=== PATIENT | male | born 1980 | race Caucasian/White ===

== ENCOUNTER 2024-02-11 13:01 | Inpatient (IN) | payer BC, OTHER ==
[~2024-02-11 13:01] MED LIST: Iopamidol-370 76% 500 ML MDV (1 ML CHARGE) ONE
[2024-02-11] MEDS ORDERED: Acetaminophen 500 MG TAB ONE (14:41)
[2024-02-11 15:19] LABS: #Basophils 0.04 10x3/uL (0.0-0.2); %Basophils 0.4 % (0.0-1.0); %Eosinophils 1.9 % (0.0-10.0); %Lymphocytes 12.7 % (21.0-51.0); %Monocytes 7.5 % (0.0-10.0); %Neutrophils 77.2 % (42.0-75.0); Hematocrit 45.9 % (42.0-52.0); Mean Corpuscular HGB CONC 32.7 g/dL (32.0-36.0); Mean Corpuscular Hemoglobin 29.2 pg (27.0-31.0); Mean Corpuscular Volume 89.3 fL (78.0-98.0); Mean Platelet Volume 10.6 fL (7.4-10.4); Platelet Count 247 10x3/uL (130-400); Red Blood Cell (RBC) Count 5.14 mill/uL (4.70-6.10)
[2024-02-11 15:33] LABS: INR-International Normal Ratio 0.9; PTT 31.3 sec (22.9-36.1); Prothrombin Time 12.5 sec (12.0-14.7)
[2024-02-11 15:36] LABS: D-Dimer Test 0.44 mcg/mL (0.27-0.43)
[2024-02-11 15:49] LABS: ALT (SGPT) 13 U/L (8-55); AST (SGOT) 18 U/L (5-34); Albumin 3.5 g/dL (3.5-5.0); Alkaline Phosphatase 88 U/L (40-110); Anion Gap 11 mmol/L (10-20); BUN (Urea Nitrogen) 10 mg/dL (8.9-20.6); Bilirubin, Total 0.5 mg/dL (0.2-1.2); Calc. Creatinine Clearance 0 mL/min (70-130); Calcium 8.9 mg/dL (7.8-10.44); Carbon Dioxide 27 mmol/L (22-29); Chloride 109 mmol/L (98-107); Estimated GFR 108; Globulin 3.4 g/dL (2.4-3.5); Glucose 72 mg/dL (70-105); Potassium 4.2 mmol/L (3.5-5.1); Protein, Total 6.9 g/dL (6.0-8.3); Sodium 143 mmol/L (136-145)
[2024-02-11] MEDS ORDERED: Heparin 25,000 units/D5W 500 ML ONE (16:27)
[2024-02-11] MEDS ORDERED: Heparin 5,000 UNITS/ML VIAL ONE ×2 (16:27)
[2024-02-11] MEDS ORDERED: Heparin 25,000 units/D5W 500 ML IV SCH (16:30)
[2024-02-11] MEDS ORDERED: Heparin 10,000 UNITS/ 10 ML VIAL SLOW IVP SCH (16:30)
[2024-02-11] MEDS ORDERED: Calcium Carbonate 500 MG ChewTAB PO PRN (17:05)
[2024-02-11] MEDS ORDERED: Acetaminophen 650 MG Suppository PR PRN (17:05)
[2024-02-11] MEDS ORDERED: Senokot S 8.6-50 MG TAB PO PRN (17:05)
[2024-02-11] MEDS ORDERED: Nicotine 14 MG PATCH TD PRN (17:08)
[2024-02-11 19:43] VITALS: BMI 26.7
[2024-02-11] MEDS: Famotidine 20 MG TAB PO SCH (21:03)
[2024-02-11] MEDS: Acetaminophen 325 MG TAB PO PRN (21:05)
[2024-02-11 23:57] LABS: PTT 143.8 sec (22.9-36.1)
[2024-02-12 06:13] LABS: #Basophils 0.04 10x3/uL (0.0-0.2); %Basophils 0.5 % (0.0-1.0); %Eosinophils 4.3 % (0.0-10.0); %Lymphocytes 21.1 % (21.0-51.0); %Monocytes 6.6 % (0.0-10.0); Hemoglobin 14.9 g/dL (14.0-18.0); Mean Corpuscular HGB CONC 33.1 g/dL (32.0-36.0); Mean Corpuscular Hemoglobin 28.7 pg (27.0-31.0); Mean Corpuscular Volume 86.7 fL (78.0-98.0); Mean Platelet Volume 11.3 fL (7.4-10.4); Platelet Count 232 10x3/uL (130-400); RBC Distribution Width 14.3 % (11.5-14.5); Red Blood Cell (RBC) Count 5.19 mill/uL (4.70-6.10)
[2024-02-12 06:16] LABS: Anion Gap 12 mmol/L (10-20); BUN (Urea Nitrogen) 13 mg/dL (8.9-20.6); Calc. Creatinine Clearance 119 mL/min (70-130); Carbon Dioxide 22 mmol/L (22-29); Chloride 112 mmol/L (98-107); Estimated GFR 96; Glucose 86 mg/dL (70-105); Potassium 4.3 mmol/L (3.5-5.1); Sodium 142 mmol/L (136-145)
[2024-02-12] MEDS: Morphine 2 MG/ML VIAL SLOW IVP PRN (09:16)
[2024-02-12] MEDS: Heparin 10,000 UNITS/ 10 ML VIAL SLOW IVP SCH (13:02)
[2024-02-12] MEDS: Heparin 25,000 units/D5W 500 ML IVPB SCH (13:03)
[2024-02-12 14:39] LABS: Hematocrit 43.6 % (42.0-52.0); Hemoglobin 14.4 g/dL (14.0-18.0); Platelet Count 246 10x3/uL (130-400)
[2024-02-13 04:39] LABS: Anion Gap 15 mmol/L (10-20); BUN (Urea Nitrogen) 13 mg/dL (8.9-20.6); Calc. Creatinine Clearance 128 mL/min (70-130); Calcium 8.7 mg/dL (7.8-10.44); Carbon Dioxide 21 mmol/L (22-29); Chloride 108 mmol/L (98-107); Estimated GFR 105; Glucose 90 mg/dL (70-105); Potassium 3.8 mmol/L (3.5-5.1); Sodium 140 mmol/L (136-145)
[2024-02-13] MEDS ORDERED: fentaNYL 50 mcg/mL 1 mL Vial ONE (09:04)
[2024-02-13] MEDS ORDERED: Iopamidol 370 76% 100 ML VIAL ONE (10:06)
[2024-02-13] MEDS ORDERED: HYDROcodone/Acetaminophen 10/325 mg Tablet PO PRN (13:41)
[2024-02-13] MEDS: HYDROcodone/Acetaminophen 10/325 mg Tablet PO PRN (14:47)
[2024-02-14 08:06] LABS: #Basophils 0.04 10x3/uL (0.0-0.2); %Basophils 0.4 % (0.0-1.0); %Eosinophils 3.7 % (0.0-10.0); %Lymphocytes 17.9 % (21.0-51.0); %Monocytes 8.3 % (0.0-10.0); %Neutrophils 69.1 % (42.0-75.0); Hematocrit 47.9 % (42.0-52.0); Hemoglobin 15.8 g/dL (14.0-18.0); Mean Corpuscular Hemoglobin 28.6 pg (27.0-31.0); Mean Corpuscular Volume 86.6 fL (78.0-98.0); Mean Platelet Volume 10.7 fL (7.4-10.4); Platelet Count 236 10x3/uL (130-400); RBC Distribution Width 14.4 % (11.5-14.5); Red Blood Cell (RBC) Count 5.53 mill/uL (4.70-6.10)
[2024-02-14 08:07] LABS: Anion Gap 15 mmol/L (10-20); BUN (Urea Nitrogen) 14 mg/dL (8.9-20.6); Calc. Creatinine Clearance 124 mL/min (70-130); Calcium 9.2 mg/dL (7.8-10.44); Carbon Dioxide 22 mmol/L (22-29); Chloride 106 mmol/L (98-107); Estimated GFR 101; Glucose 82 mg/dL (70-105); Potassium 4.1 mmol/L (3.5-5.1); Sodium 139 mmol/L (136-145)
[2024-02-14] MEDS: Ondansetron ODT 4 MG TAB PO PRN (08:48)
[2024-02-14 11:56] LABS: Hematocrit 46.9 % (42.0-52.0); Hemoglobin 15.6 g/dL (14.0-18.0); Platelet Count 243 10x3/uL (130-400)
[2024-02-14] MEDS: Polyethylene Glycol 3350 17 GM Packet PO SCH (15:27)
[2024-02-14] MEDS: Bicillin LA 2.4 MILL.UNITS/4 ML SYRINGE IM SCH (18:15)
[2024-02-14] MEDS: Ondansetron PF 4 MG/2 ML Vial IVP PRN (18:19)
[2024-02-14] MEDS: Enoxaparin 100 MG (1 mL) SYRINGE SC SCH (20:52)
[2024-02-15] MEDS: diphenhydrAMINE 25 MG CAP PO SCH (03:30)
[2024-02-15 07:47] VITALS: BP 104/68; TEMP 98.9
[2024-02-15] MEDS: Polyethylene Glycol 3350 17 GM Packet PO SCH (08:04)
== END 2024-02-15 11:15 | DRG 301 ==
LOC: ERS 13:01 → OBSVTOIN 16:03 → EEVIPCON 16:03 → SURG A 16:03
PROVIDERS: ADMIT Internal Medicine; ATTEND Family Medicine
PROC: 06H03DZ Insertion of Intraluminal Device into Inferior Vena Cava, Percutaneous Approach (ICD-10-PCS; principal; 2024-02-13)
DX: I82.412 Acute embolism and thrombosis of left femoral vein (principal); A53.9 Syphilis, unspecified; I82.442 Acute embolism and thrombosis of left tibial vein; F17.210 Nicotine dependence, cigarettes, uncomplicated; Z86.711 Personal history of pulmonary embolism; Z79.01 Long term (current) use of anticoagulants; Z71.6 Tobacco abuse counseling
CPT/HCPCS: 36415; 37191; 74177; 80048; 80053; 85014; 85018; 85025; 85049; 85379; 85610; 85730; 96374; C1769; C1880; C1894; J0561; J1644; J1650; J2272; J2405; J3010; Q0162; Q9967

== ENCOUNTER 2024-07-30 17:36 | Inpatient (IN) | payer OTHER ==
[2024-07-30 17:43] VITALS: BMI 28.5
[2024-07-30] MEDS ORDERED: Acetaminophen 500 MG TAB PO PRN (18:08)
[2024-07-30] MEDS ORDERED: HYDROcodone/Acetaminophen 5/325 mg Tablet PO PRN (18:08)
[2024-07-30] MEDS ORDERED: Ondansetron ODT 4 MG TAB PO PRN (18:08)
[2024-07-30] MEDS ORDERED: Ondansetron PF 4 MG/2 ML Vial IVP PRN (18:08)
[2024-07-30] MEDS: HYDROcodone/Acetaminophen 5/325 mg Tablet PO PRN (18:26)
[2024-07-30] MEDS: Famotidine 20 MG TAB PO SCH (20:43)
[2024-07-30] MEDS: Enoxaparin 100 MG (1 mL) SYRINGE SC SCH (20:44)
[2024-07-31 05:26] LABS: #Basophils 0.05 10x3/uL (0.0-0.2); %Basophils 0.6 % (0.0-1.0); %Eosinophils 5.5 % (0.0-10.0); %Lymphocytes 34.1 % (21.0-51.0); %Monocytes 6.8 % (0.0-10.0); %Neutrophils 51.8 % (42.0-75.0); Hematocrit 44.3 % (42.0-52.0); Hemoglobin 14.4 g/dL (14.0-18.0); Mean Corpuscular HGB CONC 32.5 g/dL (32.0-36.0); Mean Corpuscular Hemoglobin 29.8 pg (27.0-31.0); Mean Corpuscular Volume 91.7 fL (78.0-98.0); Mean Platelet Volume 11.4 fL (7.4-10.4); Platelet Count 230 10x3/uL (130-400); RBC Distribution Width 14.6 % (11.5-14.5); Red Blood Cell (RBC) Count 4.83 mill/uL (4.70-6.10)
[2024-07-31 05:48] LABS: Anion Gap 13 mmol/L (10-20); BUN (Urea Nitrogen) 18 mg/dL (8.9-20.6); Calc. Creatinine Clearance 110 mL/min (70-130); Carbon Dioxide 27 mmol/L (22-29); Chloride 108 mmol/L (98-107); Estimated GFR 81; Glucose 86 mg/dL (70-105); Potassium 4.7 mmol/L (3.5-5.1); Sodium 143 mmol/L (136-145)
[2024-08-01 08:36] VITALS: BP 114/72; TEMP 98.1
== END 2024-08-01 12:31 | disposition home or self-care (01) | DRG 301 ==
LOC: T4-B 17:37
PROVIDERS: ADMIT Family Medicine; ATTEND Internal Medicine
DX: I82.402 Acute embolism and thrombosis of unspecified deep veins of left lower extremity (principal); F15.10 Other stimulant abuse, uncomplicated; F17.210 Nicotine dependence, cigarettes, uncomplicated; Z79.01 Long term (current) use of anticoagulants; Z86.711 Personal history of pulmonary embolism; Z79.899 Other long term (current) drug therapy
CPT/HCPCS: 36415; 80048; 82274; 85025; J1650